=== PATIENT | female | born 1955 | race Two or more races ===

== ENCOUNTER 2023-07-24 10:15 | Outpatient (OUT) | payer MEDICARE, OTHER, SELFPAY ==
[2023-07-24 11:01] LABS: INR 1.03; Partial Thromboplastin Time 32.8 sec (22.3-36.2); Prothrombin Time 10.9 sec (9.0-11.6)
== END 2023-07-24 10:16 | disposition home or self-care (01) ==
LOC: LAB 10:26
PROVIDERS: Visit Provider Otolaryngology
DX: D68.9 Coagulation defect, unspecified (principal)
CPT/HCPCS: 36415; 85610; 85730